=== PATIENT | male | born 1950 | race Caucasian/White ===

== ENCOUNTER → 2020-12-24 15:26 | Outpatient (BNVA) | payer OTHER, SELFPAY | PROVIDERS: PCP Family Medicine; Visit Provider Nurse Practitioner | DX: G62.9 Polyneuropathy, unspecified (principal); S06.9X0S Unspecified intracranial injury without loss of consciousness, sequela; V89.2XXS Person injured in unspecified motor-vehicle accident, traffic, sequela | CPT/HCPCS: 99204 ==

== ENCOUNTER 2021-01-15 15:17 | Outpatient (CLI) | payer OTHER, SELFPAY ==
--- NOTE | 2021-01-15 15:15 | MR_ITS ---
WS: [id number] MRI BRAIN WITHOUT CONTRAST HISTORY: I67.9 - Cerebrovascular disease, unspecified COMPARISON: None available. TECHNIQUE: Diffusion imaging, multiplanar T1, T2 and FLAIR imaging obtained. No evidence for acute infarct or hemorrhage. Nelson-white matter differentiation is normal. Moderate amount of small vessel ischemic disease in the periventricular and subcortical white matter. No prior infarcts. There is mild bilateral atrophy. No inferior displacement of cerebellar tonsils. Ventricles and extra-axial spaces are mildly prominent on the basis of atrophy. Cavum septum et verga e variant is noted. No inferior displacement of cerebellar tonsils. The sella turcica and pituitary gland are unremarkabl e. Dural venous sinuses and [place] demonstrate no abnormality on this unenhanced studies. Paranasal sinuses: Clear. Mastoid air cells: Mild bilateral mastoid air cell fluid. Calvarium and scalp: Intact. MR/MR head wo con* [id number] IMPRESSION: 1. No acute infarct. 2. Mild atrophy with moderate chronic microvascular ischemic type changes. No prior infarcts.
== END 2021-01-15 15:18 | disposition home or self-care (01) ==
LOC: RADSHAW 15:19
PROVIDERS: PCP Family Medicine; Visit Provider Nurse Practitioner
DX: I67.9 Cerebrovascular disease, unspecified (principal); G31.9 Degenerative disease of nervous system, unspecified; I67.82 Cerebral ischemia
CPT/HCPCS: 70551

== ENCOUNTER → 2023-03-02 10:40 | Outpatient (BNVA) | payer OTHER, SELFPAY | PROVIDERS: PCP Family Medicine; Visit Provider Internal Medicine Cardiovascular Disease | DX: R00.2 Palpitations (principal); I10 Essential (primary) hypertension; R06.02 Shortness of breath; R07.9 Chest pain, unspecified; I25.3 Aneurysm of heart; E11.9 Type 2 diabetes mellitus without complications; E78.5 Hyperlipidemia, unspecified; G47.33 Obstructive sleep apnea (adult) (pediatric); G45.9 Transient cerebral ischemic attack, unspecified; Z86.73 Personal history of transient ischemic attack (TIA), and cerebral infarction without residual deficits; I45.9 Conduction disorder, unspecified | CPT/HCPCS: 36415; 80048; 83880; 99205 ==

== ENCOUNTER → 2023-03-02 12:13 | Outpatient (BNVA) | payer OTHER, SELFPAY | PROVIDERS: PCP Family Medicine; Visit Provider Internal Medicine Cardiovascular Disease | DX: R00.2 Palpitations (principal); I10 Essential (primary) hypertension; R06.02 Shortness of breath; R07.9 Chest pain, unspecified | CPT/HCPCS: 93005 ==

== ENCOUNTER 2023-03-17 08:09 | Outpatient (CLI) | payer OTHER, SELFPAY ==
[2023-03-17 08:17] VITALS: BMI 35.2
--- NOTE | 2023-03-17 08:19 | NMCV_ITS ---
NM waylon perf SPECT r/s* [id number] Jaron Hawk Age: 73 Gender: M : 1950 Exam Date: 03/17/2023 09:02 Ordering Phys: Albert Stewart MD ([email or web address]) Technologist: NADINE Marquez Exam Location: [facility] Indications: CORONARY ANGIOPLASTY STATUS STRESS TEST Please [facility] IMAGE PROTOCOL Rest/Stress 1 Lexiscan Day Radiopharmaceutical Dose (mCi) Administration Site Administered by Rest: Tc-99m 10.7 IV NADIEN Pritchett Sestamibi Stress:Tc-99m 32.7 IV NADINE Pritchett Sestamibi Rest: 17-Mar-2023 60 Discovery 630 Stress: 17-Mar-2023 30 Discovery 630 0.4mg Lexiscan. Images obtained in supine and prone position. SPECT RESULTS Technical Quality: Excellent Raw Data Analysis: Normal Image Corrections: No attenuation or motion correction applied Summed Stress Score: 0 Summed Rest Score: 2 Summed Difference Score: 0 PERFUSION FINDINGS Slightly decreased recently was noted in the medical management. Basal, mid and apical inferior wall regions, with no significant reversibility. FUNCTIONAL RESULTS (calculated via Gated SPECT) Stress Image LV EF (%): 63 Stress EDV (mL):139 TID: 0.99 Stress ESV (mL):51 FUNCTIONAL FINDINGS: Segmental wall motion analysis revealing no gross wall motion abnormalities IMPRESSIONS 1. Myocardial perfusion imaging revealing small area of persistent decreased tracer uptake in the inferior wall region, suggestive of myocardial scarring versus attrition artifact. 2. Normal LV ejection fraction of 63%. 3. LV wall motion analysis revealing no gross wall motion abnormalities. 4. Normal LV volume Low probability for coronary ischemia, based on the above findings No similar previous studies are available for comparison Dr Albert Stewart MD [facility] (Electronically Signed) Final Date: 17 March 2023 19:11 S
--- NOTE | 2023-03-17 08:19 | ECG_ITS ---
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 Interpretive Statements Lung unchanged pre/post procedure;Intraprocedure shortess of breath Symptoms resoled by discharge Lexiscan/sestamibi/sestamibi stress test Indication: Shortness of breath PROCEDURE: At the baseline, the EKG revealed normal sinus rhythm with a normal ST Ts.. The baseline heart was 67 bpm with a blood pressue of 145/85 mm of Hg Lexiscan was infused over a period of 20 seconds. A total of 0.4 milligrams of Lexiscan was infused. The stress phase was continued for a total of 5 minutes. Heart rate at the end of the stress phase was 70 bpm with a blood pressure 146/67 mm of Hg. The EKG at the peak infusion revealed no significant changes. Sestamibi was injected 20 seconds after the Lexiscan infusion. Heart rate at the end of the recovery phase was 72 bpm with a blood pressure of 147/72 mm of Hg. CONCLUSION: 1. No significant EKG changes with the LexiScan infusion 2. No LexiScan induced chest pain or cardiac arrhythmia 3. Normal blood pressure and heart rate response 4. Sestamibi/sestamibi perfusion scan pending; see separate report. Electronically Signed On 03-18-2023 12:38:47 CDT by Albert Stewart M.D. [email or web address]
[2023-03-17] MEDS: regadenoson 0.4 Mg/5 ml Syringe IVP (10:27)
[2023-03-17 10:35] VITALS: BP 149/76; PULSE 71
--- NOTE | 2023-03-17 12:15 | USCV_ITS ---
Jaron Hawk Age: 73 Gender: M : 1950 Exam Date: 03/17/2023 08:47 Ordering Phys: Albert Stewart MD ([email or web address]) Technologist: CURTIS Exam Location: [facility] [place] Indication: SHORTNESS OF BREATH BP: 152 / 80 HR: 61 Rhythm: Sinus Technical Quality: Adequate MEASUREMENTS (Male / Female) Normal Values 2D ECHO LVOT Diameter 2.0 cm LV Ejection Fraction MOD 2C 62.3 % LV Ejection Fraction 2C AL 61.8 % LA Diameter 3.2 cm LA Width 3.5 cm LA Height 5.3 cm RA Width 4.2 cm RA Height 5.3 cm Aorta at Sinotubular Diameter 2.9 cm IVC Diameter 2.2 cm M-MODE Aortic Annulus Diameter 3.8 cm LA Ao Ratio MM 0.8 MV E Point Septal Separation 0.9 cm DOPPLER AV Peak Velocity 152.0 cm/s LVOT Peak Velocity 128.0 cm/s AV Area Cont Eq vti 3.1 cm squared AV Area Cont Eq pk 2.7 cm squared MV Peak Velocity 101.0 cm/s MV Area PHT 2.5 cm squared Mitral E to A Ratio 0.8 MV E' Velocity 39.0 cm/s Mitral E to MV E' Ratio 7.5 Mitral E to LV E' Lateral Ratio 7.6 Mitral E to LV E' Septal Ratio 7.5 TR Peak Velocity 241.4 cm/s TR Peak Gradient 23.3 mmHg TR Mean Velocity 193.2 cm/s TR Mean Gradient 15.7 mmHg TR Velocity Time Integral 79.7 cm TV Peak E Velocity 48.0 cm/s Right Atrial Pressure 3.0 mmHg Pulmonary Artery Systolic Pressu 26.3 mmHg PV Peak Velocity 108.0 cm/s RV Acceleration Time 0.1 s RV Ejection Time 0.4 s RV AcT/ET 0.3 FINDINGS Left Ventricle Normal left ventricular size and systolic function, EF 59 %. No regional wall motion abnormalities. Grade I/IV diastolic dysfunction (abnormal relaxation filling pattern), normal to mildly elevated filling pressures. Right Ventricle The right ventricle is normal in size and function. Right Atrium The right atrium is normal in size. Left Atrium The left atrium is normal in size. Mitral Valve No gross abnormalities noted Aortic Valve No gross abnormalities noted Tricuspid Valve No gross abnormalities noted Pulmonic Valve Pulmonic valve not well visualized. Pericardium Normal pericardium without effusion. Aorta Normal ascending aorta dimension. IVC The inferior vena cava appears normal. CONCLUSIONS Normal left ventricular size and systolic function, EF 59 %. No regional wall motion abnormalities. Grade I/IV diastolic dysfunction (abnormal relaxation filling pattern), normal to mildly elevated filling pressures. No gross valvular abnormalities There is no pericardial effusion. No significant stenotic or regurgitant lesions, based on color flow Doppler examination. No similar previous studies are available for comparison Dr Albert Stewart MD [facility] (Electronically Signed) Final Date: 19 March 2023 13:27 S
--- NOTE | 2023-03-17 13:30 | USCV_ITS ---
Jaron Hawk Age: 73 Gender: M : 1950 Exam Date: 03/17/2023 08:32 Ordering Phys: Albert Stewart MD ([email or web address] Technologist: CURTIS [place] [facility] [facility] [place]: TIA Risk Factors: Previous Vascular Surgery: Right Brachial BP: / Left Brachial BP: / Right Left Velocity (cm/s) Spectral Plaque Velocity (cm/s) Spectral Plaque Syst/Diast Broadening Syst/Diast Broadening 93.50/ 11.10 Prox CCA 122.70/ 31.10 102.50/23.20 Mid CCA 83.90 / 19.40 58.30/ 14.80 Distal CCA 69.00 / 17.70 48.70/ 12.80 Prox ICA 51.40 / 11.10 59.00/ 20.50 Mid ICA 71.50 / 23.30 66.10/ 30.80 Distal ICA 72.50 / 21.80 97.40 ECA 74.90 0.64 ICA/CCA 0.59 Antegrade Vertebral Antegrade 35.00/ 13.70 cm/s 36.90/ 10.30 cm/s Tri Subclavian Tri 158.5 153.9 0 0 FINDINGS Minimal plaques at the bifurcations and proximal internal carotid arteries. Scattered minimal plaques in the carotid common carotid arteries bilaterally Antegrade flow in the vertebral arteries bilaterally. Normal Doppler velocities in the external carotid and subclavian arteries CONCLUSIONS Minimal plaques at the bifurcations and proximal internal carotid arteries, suggesting less than 50% stenosis No significant stenosis in the external carotid or subclavian arteries based on the flow velocity measurements No similar previous studies are available for comparison Dr Albert Stewart MD [facility] (Electronically Signed) Final Date: 19 March 2023 13:17 S
== END 2023-03-17 08:10 | disposition home or self-care (01) ==
LOC: CDL 08:11
PROVIDERS: Family Provider Physician Assistant; PCP Family Medicine; Visit Provider Internal Medicine Cardiovascular Disease
DX: R06.09 Other forms of dyspnea (principal); I77.9 Disorder of arteries and arterioles, unspecified; I65.23 Occlusion and stenosis of bilateral carotid arteries
CPT/HCPCS: 36415; 78452; 93017; 93306; 93880; 96374; A9500; J2785

== ENCOUNTER → 2023-05-09 10:03 | Outpatient (BNVA) | payer OTHER, SELFPAY | PROVIDERS: Family Provider Physician Assistant; PCP Family Medicine; Visit Provider Nurse Practitioner Family | DX: I10 Essential (primary) hypertension (principal); Z87.891 Personal history of nicotine dependence | CPT/HCPCS: 99213 ==

== ENCOUNTER 2023-08-02 13:25 | Outpatient (CLI) | payer OTHER, SELFPAY ==
--- NOTE | 2023-08-02 13:45 | USCV_ITS ---
Jaron Hawk Age: 73 Gender: M : 1950 Exam Date: 08/02/2023 13:42 Ordering Phys: Izabela Cabrera Technologist: [place] [facility] [place]ication: pad numbness Risk Factors: Previous Vascular Surgery: RIGHT LEFT BP: 156.0 / BP: 148.0/ 0 0 Waveform Velocity (cm/s) Velocity (cm/s) Waveform Triphasic 120.0 Iliac Prox 123.0 Triphasic Triphasic 125.0 Iliac Mid 113.0 Triphasic Triphasic Iliac Distal Triphasic 127.0 113.0 Triphasic 120.0 ZIGZAG MACHINE OPERATOR 114.0 Triphasic Triphasic 106.0 SFA Prox 114.0 Triphasic Triphasic 88.0 SFA Mid 116.0 Triphasic Triphasic 95.0 SFA Dist 104.0 Triphasic Triphasic 91.0 POP 80.0 Triphasic Triphasic 78.0 HIGH RIGGER 61.0 Triphasic Biphasic 84.0 DPA 77.0 Triphasic 1.0 AMERICA 1.4 FINDINGS Intimal thickening and minimal plaques in the iliac, femoral and popliteal arteries bilaterally Resting AMERICA 1.0 on the right and 1.4 on the left CONCLUSIONS 1. Normal resting ABIs bilaterally 2. Near normal arterial Doppler waveforms and velocities bilaterally. No significant arterial obstruction, based on the above finding Dr Albert Stewart MD [facility] (Electronically Signed) Final Date: 04 August 2023 17:21 S
== END 2023-08-02 13:26 | disposition home or self-care (01) ==
LOC: RAD 13:25
PROVIDERS: Family Provider Physician Assistant; PCP Family Medicine; Visit Provider Nurse Practitioner Family
DX: I25.3 Aneurysm of heart (principal); G45.9 Transient cerebral ischemic attack, unspecified; I10 Essential (primary) hypertension; I73.9 Peripheral vascular disease, unspecified; R20.0 Anesthesia of skin
CPT/HCPCS: 93925

== ENCOUNTER → 2023-09-07 13:33 | Outpatient (BNVA) | payer OTHER, SELFPAY | PROVIDERS: Family Provider Physician Assistant; PCP Family Medicine; Visit Provider Podiatrist Foot & Ankle Surgery | DX: L60.3 Nail dystrophy (principal); L84 Corns and callosities; G62.9 Polyneuropathy, unspecified; E11.42 Type 2 diabetes mellitus with diabetic polyneuropathy | CPT/HCPCS: 99203 ==

== ENCOUNTER → 2023-09-22 15:15 | Outpatient (BNVA) | payer OTHER, SELFPAY | PROVIDERS: Family Provider Physician Assistant; PCP Family Medicine; Visit Provider Internal Medicine Cardiovascular Disease | DX: R06.02 Shortness of breath (principal); I10 Essential (primary) hypertension; E78.5 Hyperlipidemia, unspecified; E11.9 Type 2 diabetes mellitus without complications; Z86.73 Personal history of transient ischemic attack (TIA), and cerebral infarction without residual deficits; Z87.891 Personal history of nicotine dependence; I25.3 Aneurysm of heart | CPT/HCPCS: 99215 ==

== ENCOUNTER → 2023-10-12 12:47 | Outpatient (BNVA) | payer OTHER, SELFPAY | PROVIDERS: Family Provider Physician Assistant; PCP Family Medicine; Visit Provider Internal Medicine Cardiovascular Disease | DX: I63.9 Cerebral infarction, unspecified (principal); R06.02 Shortness of breath; I10 Essential (primary) hypertension | CPT/HCPCS: 36415; 80048; 83880; 99214 ==

== ENCOUNTER → 2023-11-08 10:11 | Outpatient (BNVA) | payer OTHER, SELFPAY | PROVIDERS: Family Provider Physician Assistant; PCP Family Medicine; Visit Provider Podiatrist Foot & Ankle Surgery | DX: L60.3 Nail dystrophy (principal); L84 Corns and callosities; G62.9 Polyneuropathy, unspecified; E11.42 Type 2 diabetes mellitus with diabetic polyneuropathy | CPT/HCPCS: 11721 ==

== ENCOUNTER → 2024-01-17 12:46 | Outpatient (BNVA) | payer OTHER, SELFPAY | PROVIDERS: Family Provider Physician Assistant; PCP Family Medicine; Visit Provider Podiatrist Foot & Ankle Surgery | DX: L60.3 Nail dystrophy (principal); L84 Corns and callosities; G62.9 Polyneuropathy, unspecified; E11.42 Type 2 diabetes mellitus with diabetic polyneuropathy | CPT/HCPCS: 11721 ==

== ENCOUNTER → 2024-02-15 10:45 | Outpatient (BNVA) | payer OTHER, SELFPAY | PROVIDERS: Family Provider Physician Assistant; PCP Family Medicine; Referring Provider Internal Medicine Cardiovascular Disease; Visit Provider Specialist | DX: G37.9 Demyelinating disease of central nervous system, unspecified (principal); G47.33 Obstructive sleep apnea (adult) (pediatric); I20.0 Unstable angina; G62.9 Polyneuropathy, unspecified; E11.40 Type 2 diabetes mellitus with diabetic neuropathy, unspecified; I10 Essential (primary) hypertension | CPT/HCPCS: 99204; 99205 ==

== ENCOUNTER 2024-03-08 09:22 | Outpatient (CLI) | payer OTHER, SELFPAY ==
--- NOTE | 2024-03-08 09:30 | USCV_ITS ---
Jaron Hawk Age: 74 Gender: M : 1950 Exam Date: 03/08/2024 09:36 Ordering Phys: Gennaro Lara M.D. Technologist: SUBHASH Exam Location: [facility] Indication: cca disease Risk Factors: Previous Vascular Surgery: Right Brachial BP: / Left Brachial BP: / Right Left Velocity (cm/s) Spectral Plaque Velocity (cm/s) Spectral Plaque Syst/Diast Broadening Syst/Diast Broadening 126.70/20.60 Prox CCA 90.60 / 13.80 113.10/18.30 Mid CCA 67.10 / 12.50 99.10/ 18.00 Distal CCA 67.10 / 10.70 41.80/ 5.90 Prox ICA 45.80 / 9.50 36.40/ 2.90 Mid ICA 49.30 / 5.10 48.20/ 14.80 Distal ICA 41.70 / 9.30 88.40 ECA 79.00 0.50 ICA/CCA 0.70 Antegrade Vertebral Antegrade 73.10/ 20.00 cm/s 35.90/ 6.70 cm/s Tri Subclavian Tri 88.90 107.7 0 CONCLUSIONS Right ICA stenosis <50%. Mild atheromatous plaque right carotid bulb/ICA. Left ICA stenosis <50%. Mild atheromatous plaque left carotid bulb/ICA. Intimal thickening in the common carotid arteries and internal carotid arteries bilaterally. Normal antegrade Doppler flow noted in the right vertebral artery. Normal antegrade Doppler flow noted in the left vertebral artery. Aravind Calderón MD (Electronically Signed) Final Date: 08 March 2024 15:38 S
== END 2024-03-08 09:23 | disposition home or self-care (01) ==
LOC: RAD 09:23
PROVIDERS: Family Provider Physician Assistant; PCP Family Medicine; Visit Provider Emergency Medicine
DX: I65.23 Occlusion and stenosis of bilateral carotid arteries (principal)
CPT/HCPCS: 93880

== ENCOUNTER → 2024-03-20 16:00 | Outpatient (BNVA) | payer OTHER, SELFPAY | PROVIDERS: Family Provider Physician Assistant; PCP Family Medicine; Visit Provider Internal Medicine | DX: I10 Essential (primary) hypertension (principal); I20.0 Unstable angina; R06.09 Other forms of dyspnea; R58 Hemorrhage, not elsewhere classified | CPT/HCPCS: 36415; 80048; 85025; 85610 ==

== ENCOUNTER 2024-03-28 08:01 | Outpatient (CLI) | payer OTHER, SELFPAY ==
--- NOTE | 2024-03-28 08:07 | CT_ITS ---
WS: [id number] CT HEAD NONCONTRAST HISTORY: TBI AND RECURRENT TIA SYMPTOMS TECHNIQUE: Contiguous axial imaging performed through the brain. Bone and soft tissue windows. Sagitt al and coronal reformats reviewed. All CT scans at [facility] use at least one of these dose optimization techniques: automated exposure control; mA and/or kV adjustment per patient size (includ es targeted exams where dose is matched to clinical indication); or iterative reconstruction. DLP: 2194.88 mGy.cm COMPARISON: MRI 01/15/2021 No acute intracranial hemorrhage, midline shift or mass effect. Mild atrophy with moderate small vessel ischemic disease. No prior infarcts. Ventricles: Mildly dilated ventricles with cavum septum pellucida et vergae variant. No inferior displacement of the cerebellar tonsils. Paranasal sinuses: As visualized are clear. Mastoid air cells: Well pneumatized. Calvarium and scalp: Skull is intact with no soft tissue edema or swelling. Ectatic dilated vertebral and basilar artery. Heavy calcification in the intracranial carotid arterie s. CT/CT head wo con* [id number] IMPRESSION: 1. No acute intracranial hemorrhage or edema. 2. Mild atrophy with moderate small vessel disease. No acute infarct. 3. Extensive atherosclerosis intracranial carotid arteries.
== END 2024-03-28 08:02 | disposition home or self-care (01) ==
LOC: RAD 08:02
PROVIDERS: Family Provider Physician Assistant; PCP Emergency Medicine; Visit Provider Emergency Medicine
DX: I65.23 Occlusion and stenosis of bilateral carotid arteries (principal); I67.82 Cerebral ischemia; I77.74 Dissection of vertebral artery
CPT/HCPCS: 70450

== ENCOUNTER 2024-04-05 08:35 | Outpatient (CLI) | payer OTHER, SELFPAY ==
[2024-04-05] VITALS (9 sets, daily range): BP systolic 133–157; BP diastolic 67–92; PULSE 63–76; RESP 16–29; TEMP 36.7; O2SAT 94–97; BMI 34.7
--- NOTE | 2024-04-05 09:00 | XACV_ITS ---
Exam Room: 2 Ht: 183 cm Wt: 116 kg BSA: 2.47 m2 Gender: Male : 1950 Any Known Allergies: No known allergies Exam Priority: Routine Procedure(s): Procedure Description: Diagnostic procedure Procedure Description: Left Heart Catheterization Procedure Description: Left ventriculography Procedure Description: Coronary Angiography Procedure Description: Pressure Wire Diagnostic Cath Status: Elective Diagnostic Findings * Left Main has no disease. * Circumflex has no disease. * Mid Left Anterior Descending: obstructive 60% stenosis, TORITO: 3 flow. * Proximal Right Coronary Artery: obstructive 70% stenosis, TORITO: 3 flow, iFR performed: ratio is 0.95. * Coronary angiography shows right dominance. Conclusions 1. There is obstructive coronary artery disease with two vessel disease. 2. All coughlin are normal. 3. Normal left ventricular systolic function. Ejection fraction of 60%. 4. 74-year-old male past medical history significant for TIA diabetes hypertension negative stress test but persistent unexplained shortness of breath underwent coronary angiogram today. He was noted to have borderline moderate proximal RCA eccentric 60 to 70% stenosis, IFR was performed which turned out to be within nonsignificant range of 0.95. It was also noted patient has mid 50 to 60% stenosis more evident in INDIAN caudal and apical anterior views, while in other views it did not look significant and because of the fact he has negative stress test in the area we thought that it would be nonsignificant and will treat medically. However if patient continues to have symptoms despite of optimization of medicine may consider intervening on those 2 lesions after repeating IFR. Recommendations * Optimize medical management and risk factor modification. Diagnostic RX Recommendation: medical therapy and/or counseling Ventriculography Ejection Fraction: 60.0 % Pressures Phase:Rest AO : 126 / 70 ( 92 ) @ 12:43:00 PM 143 / 72 ( 101 ) @ 12:54:00 PM LV : 138 / 0 / 21 @ 12:49:00 PM 141 / 4 / 25 @ 12:50:00 PM Clinical Evaluation EBL: 5mL-10mL Procedural Details Procedure Consent Obtained. Admit Source: Out Patient. Pre-Procedure Time Out. Identified patient by full name and date of as verbalized by the patient/guarantor. Does the consent match the physician's order: Yes. Accurate & Complete Informed Consent: Yes. Inpatient/Outpatient History & Physical on Chart: Yes. If H&P is completed, is and addenduem needed: No; If yes, is the addendum complete: N/A. Visualize and Verify Site with Patient/Guarantor: N/A. Relevant Radiology Images available: Yes. The risks, benefits, and alternatives of sedation and/or procedure were discussed by physician. The patient agrees to continue. Procedure started. [facility] Clinical Fraility Score: 3: Managing Well. Consumer Analyst Indications: Worsening Angina. Chest Pain Symptom Assessment: Typical Angina Symptoms. Correct patient, site and procedure confirmed by cath team. Current diagnosis: Unstable angina. PERRLA. Strong, equal hand pipe stress engineer bilaterally. Lungs clear x 5 lobes. IV Site on Arrival: 20 gauge in the left forearm. IV Fluids: 0.9% NaCl at KVO. 0 mL infused prior to cath lab radiology technician. Pre Procedural Pulses: bilateral dorsalis pedis was 3+. Pre Procedural Pulses: bilateral posterior tibial was 3+. Pre Procedural Pulses: right radial was 3+. Oxygen started at 2liters/min via nasal canula. right radial was prepped with chloroprep then draped in the usual sterile fashion. right groin was prepped with chloroprep then draped in the usual sterile fashion. Physician notified. Baseline sample Acquired. HR: 68 BPM. Physician arrived. Physician scrubbed in. Immediate Pre-Procedure Time Out. Correct Patient: Yes; Correct Procedure: Yes; Correct Site: Yes; Correct Patient Position: Yes; Correct Supplies: Yes; Dried Flammable Prep: Yes; Blood Products Available: No;. Lidocaine 1% infiltrated to the right radial. Arterial access obtained. A 5 dutch Korey catheter in over wire. Multiple views taken of left coronary artery. Catheter redirected to the RCA. Multiple views taken of right coronary artery. Catheter removed over the exchange wire. A 5 dutch Angled Pig catheter in over wire. EDP Sample taken: LV 138/0,21; HR: 70 BPM; SpO2: 95%. LV gram performed in CID @ 10 mL/second for a total of 20 mL. EDP Sample taken: LV 141/4,25; HR: 62 BPM; SpO2: 94%. Pullback taken: LV Off; AO Off; Mean: , Peak to Peak: , SEP: ; HR: 66 BPM; SpO2: 94%. Catheter removed over the exchange wire. 6 dutch JR 4 guide catheter was inserted over the wire. iFR pressure guidewire in through guide catheter. Add inventory: co-ship's pilot, endoflator. iFR performed of mid RCA , result 0.95mmHg. IFR wire out. Results checked. Guide catheter and exchange wire out. Post Procedure: Pulses reassessed and unchanged. PERRLA. Strong, equal hand pipe stress engineer bilaterally. No VTE prophylaxis required. Medication's Wasted: Lidocaine 1% = 18 mL. Medication's Wasted: Nitro = 49.8 mg. Medication's Wasted: Other = Fentanyl 50mcg. Total IV fluids: 40 mL. Post-op diagnosis: Non-obstructive CAD. Complications: None. Estimated blood loss: 5mL-10mL. Responsiveness - Normal response to verbal stimuli; alert and oriented, PERRLA. Airway - Unaffected, no intervention required; spontaneous ventilation. Circulation: W/N/L, pulses unchanged. Nausea/Vomiting: No. Procedure completed. A TR Band was successful obtaining hemostatsis at the Right Radial artery insertion site. Patient transferred by wheelchair to CPRU. Vital chart was stopped. Access Site Site: Right Radial artery Sheath Size: 6 Fr Hemostasis Method: TR Band Hemostasis Success: Successful Procedure Medications Start: 11:32 AM Stop: 11:32 AM Medication: Solu-Medrol (methylprednisolone) Route: I.V. Start: 11:33 AM Stop: 11:33 AM Medication: Fentanyl Amount: 50 mcg Route: I.V. Start: 11:37 AM Stop: 11:37 AM Medication: Versed Amount: 1 mg Route: I.V. Start: 11:41 AM Stop: 11:41 AM Medication: Nitrogylcerin Amount: 200 mcg Route: I.A. Start: 11:42 AM Stop: 11:42 AM Medication: Heparin Amount: 5000 units Route: I.V. Start: 11:48 AM Stop: 11:48 AM Medication: Heparin Amount: 3000 units Route: I.V. Start: 11:59 AM Stop: 11:59 AM Medication: Versed Amount: 1 mg Route: I.V. I, the attending physician, have reviewed and verified all procedure medications. Yes, all medications given per verbal order History/Risk Factors Hypertension: Yes Dyslipidemia: No Peripheral Arterial Disease (PAD): No Myocardial Infarction ([place]): No Obesity: No Renal Disease: No Prior Interventions PCI: No CABG: No Valve Surgery: No Report Signatures Finalized by Wendi Knight MD on 04/29/2024 11:45 PM
[2024-04-05] MEDS: diphenhydrAMINE 50 mg Capsule PO (09:15)
[2024-04-05] MEDS: aspirin 325 mg Tablet PO (09:27)
[2024-04-05 09:30] LABS: Basophils % 0.4 %; Eosinophils # 0.3 10^3/uL (0.0-0.8); Eosinophils % 3.4 %; Hematocrit 42.8 % (37-53); Lymphocytes # 1.4 10^3/uL (0.8-4.8); Lymphocytes % 18.2 %; Mean Corpuscular HGB Conc 33.2 g/dL (30-55); Mean Corpuscular Hemoglobin 30.2 pg (27-33); Mean Corpuscular Volume 91.1 fl (82-101); Mean Platelet Volume 8.3 fL (7.4-10.4); Monocytes # 0.6 10^3/uL (0.2-0.9); Monocytes % 7.4 %; Neutrophils % 70.2 %; Nucleated Red Blood Cells % 0 %; Platelet Count 273 10^3/cmm (157-399); Red Cell Distribution Width 12.7 % (12.1-15.1); White Blood Count 7.69 10^3/uL (3.29-11.43)
[2024-04-05 09:46] LABS: Blood Urea Nitrogen 22 mg/dL (8-23); Calcium 8.3 mg/dL (8.5-10.5); Carbon Dioxide 23 mmol/L (22-29); Chloride 106 mmol/L (98-107); Creatinine Clr Calc Pharmacy 104.9569; Glucose 122 mg/dL (65-115); Osmolality Calculated 295 mOsm/kg (285-295); Sodium 140 mmol/L (136-145)
--- NOTE | 2024-04-05 11:21 | W.PM.OPSUD ---
Surgery/Procedure H&P Update DATE OF PROCEDURE: April 05, 2024 DATE H&P PERFORMED: 03/20/24 H&P UPDATE INFORMATION: I have reviewed H&P completed within last 30 days, I have examined patient prior to procedure and No changes to prior documentation PREOP DIAGNOSIS: Angina equivalent shortness of breath unexplained PRIMARY INDICATION FOR PROCEDURE: Angina with worsening of symptoms PLANNED PROCEDURE: Operation Date: 04/05/24 10:00 Proposed Procedures p Cardiac Catheterization - C w/wo LV & Coros(Left) - Wendi Knight MD PATIENT REASSESSED PRIOR TO SEDATION, WITH NO CHANGE NOTED: Yes PHYSICAL EXAM: alert, oriented x 3, clear to auscultation bilaterally and regular rate & rhythm AIRWAY EVAL/ANESTHESIA PLAN: ASA II, Risks, benefits & alternatives of sedation and/or procedure discussed and Patient agrees to continue as planned
--- NOTE | 2024-04-05 13:56 | PC.NURSE ---
Patient came to CSU from medical laboratory manager at 1315, with a right radial TR-band.
== END 2024-04-05 18:11 | disposition home or self-care (01) ==
LOC: CCL 12:14 → CSU 13:49
PROVIDERS: Internal Medicine Cardiovascular Disease; Family Provider Physician Assistant; PCP Emergency Medicine; Visit Provider Internal Medicine
DX: I25.10 Atherosclerotic heart disease of native coronary artery without angina pectoris (principal); I10 Essential (primary) hypertension; G47.30 Sleep apnea, unspecified; E11.42 Type 2 diabetes mellitus with diabetic polyneuropathy; Z86.73 Personal history of transient ischemic attack (TIA), and cerebral infarction without residual deficits
CPT/HCPCS: 36415; 80048; 85025; 93458; 93571; 96365; 96374; 96375; 99152; C1769; C1887; C1894; J1644; J2250; J2919; J3010; J3490; J7030; Q0163; Q9967

== ENCOUNTER → 2024-04-24 12:45 | Outpatient (BNVA) | payer OTHER, SELFPAY | PROVIDERS: Family Provider Physician Assistant; PCP Emergency Medicine; Visit Provider Nurse Practitioner Family | DX: I25.10 Atherosclerotic heart disease of native coronary artery without angina pectoris (principal); Z86.73 Personal history of transient ischemic attack (TIA), and cerebral infarction without residual deficits; R06.09 Other forms of dyspnea; Z87.891 Personal history of nicotine dependence | CPT/HCPCS: 99214 ==

== ENCOUNTER → 2024-05-16 07:11 | Outpatient (BNVA) | payer OTHER, SELFPAY | PROVIDERS: Family Provider Physician Assistant; PCP Emergency Medicine; Visit Provider Podiatrist Foot & Ankle Surgery | DX: L60.3 Nail dystrophy (principal); L84 Corns and callosities; G62.9 Polyneuropathy, unspecified; E11.42 Type 2 diabetes mellitus with diabetic polyneuropathy | CPT/HCPCS: 11721 ==

== ENCOUNTER 2024-07-31 08:34 | Outpatient (CLI) | payer OTHER, SELFPAY ==
--- NOTE | 2024-07-31 | MR_ITS ---
WS: [id number] MRI LUMBAR SPINE NONCONTRAST TECHNIQUE: Sagittal T1, T2 and STIR imaging. Axial T1 and T2 imaging. CLINICAL INFORMATION: LOW BACK PAIN COMPARISON: None. FINDINGS: Mild lumbar curve. No acute compression. Multilevel disc bulging throughout the lumbar spine. Slight anterolisthesis L4 on L5. Degenerative endplate type changes at L4-5. L1-L2: Mild disc bulging. Mild central canal stenosis. Mild bilateral foraminal narrowing. Narrowing of the subarticular recess bilaterally. Moderate facet arthropathy. L2-L3: Mild disc bulging with moderate to severe central canal stenosis. Advanced facet arthropathy. Bilateral foraminal protrusions with moderate LEFT and mild RIGHT foraminal narrowing. L3-L4: Mild disc bulge with mild central canal stenosis. Moderate facet arthropathy. Narrowing of the subarticular recess bilaterally. Moderate RIGHT and mild LEFT foraminal narrowing. L4-L5: Slight anterolisthesis. Disc bulging with severe central canal stenosis. Advanced facet arthropathy and ligamentum flavum hypertrophy. Severe LEFT and moderate RIGHT foraminal narrowing. L5-S1: Mild disc bulging with mild central canal stenosis. Advanced facet arthropathy. Mild bilateral foraminal narrowing. Mild central canal stenosis in the cervical spine on the ship's pilot imaging at C4-C5 due to disc osteophyte protrusion. MR/MR lumbar spine wo con* [id number] IMPRESSION: Some images degraded by motion. 1. Moderate to severe central canal stenosis L2-3 and severe central canal shivani nosis L4-5 described above. 2. Mild central canal stenosis L3-4. 3. Multilevel moderate to severe bony foraminal narrowing described above wors e at RIGHT L3-4 and LEFT L4-5.
== END 2024-07-31 08:35 | disposition home or self-care (01) ==
LOC: RAD 08:34
PROVIDERS: Family Provider Physician Assistant; PCP Emergency Medicine; Visit Provider Emergency Medicine
DX: M48.061 Spinal stenosis, lumbar region without neurogenic claudication (principal); M43.8X6 Other specified deforming dorsopathies, lumbar region; M51.369 Other intervertebral disc degeneration, lumbar region without mention of lumbar back pain or lower extremity pain; R93.7 Abnormal findings on diagnostic imaging of other parts of musculoskeletal system; M47.896 Other spondylosis, lumbar region; M51.379 Other intervertebral disc degeneration, lumbosacral region without mention of lumbar back pain or lower extremity pain; M48.07 Spinal stenosis, lumbosacral region; M47.897 Other spondylosis, lumbosacral region
CPT/HCPCS: 72148

== ENCOUNTER → 2024-10-02 09:00 | Outpatient (BNVA) | payer OTHER, SELFPAY | PROVIDERS: Family Provider Physician Assistant; PCP Emergency Medicine; Visit Provider Podiatrist Foot & Ankle Surgery | DX: E11.42 Type 2 diabetes mellitus with diabetic polyneuropathy (principal); L60.3 Nail dystrophy; L84 Corns and callosities; G62.9 Polyneuropathy, unspecified; S92.402A Displaced unspecified fracture of left great toe, initial encounter for closed fracture; W22.8XXA Striking against or struck by other objects, initial encounter | CPT/HCPCS: 11721; 99213 ==

== ENCOUNTER 2024-12-04 09:19 | Outpatient (CLI) | payer OTHER, SELFPAY ==
--- NOTE | 2024-12-04 09:25 | USR_ITS ---
PROCEDURE INFORMATION: Exam: US Duplex Left Lower Extremity Arteries Or Arterial Bypass Grafts Exam date and time: 12/04/2024 9:29 AM Age: 74 years old Clinical indication: Pain; Leg, lower; Left; Additional info: Persistant pain edema to L foot w/callouses TECHNIQUE: Imaging protocol: Left Real-time duplex scan of the arteries or arterial bypass grafts of the left lower extremity with 2-D davila scale, color Doppler flow and spectral waveform analysis. Images documented and saved. COMPARISON: No relevant prior studies available. FINDINGS: Left common femoral artery: No occlusion or significant stenosis. Normal waveform. Left superficial femoral artery: No occlusion or significant stenosis. Normal waveform. Left popliteal artery: No occlusion or significant stenosis. Normal waveform. Left calf/foot arteries: No occlusion or significant stenosis in the visualized arteries. Normal waveforms. Dorsalis pedis artery is patent. US/CV arterial duplex [facility] [id number] IMPRESSION: No stenosis or occlusion.
== END 2024-12-04 09:20 | disposition home or self-care (01) ==
LOC: RAD 09:20
PROVIDERS: Family Provider Physician Assistant; PCP Emergency Medicine; Visit Provider Physician Assistant
DX: I73.9 Peripheral vascular disease, unspecified (principal)
CPT/HCPCS: 93926

== ENCOUNTER → 2024-12-11 07:16 | Outpatient (BNVA) | payer OTHER, SELFPAY | PROVIDERS: Family Provider Physician Assistant; PCP Emergency Medicine; Visit Provider Podiatrist Foot & Ankle Surgery | DX: E11.42 Type 2 diabetes mellitus with diabetic polyneuropathy (principal); L60.3 Nail dystrophy; L84 Corns and callosities; G62.9 Polyneuropathy, unspecified; R60.9 Edema, unspecified; I87.2 Venous insufficiency (chronic) (peripheral) | CPT/HCPCS: 99213 ==

== ENCOUNTER 2024-12-21 09:13 | Outpatient (CLI) | payer OTHER, SELFPAY ==
--- NOTE | 2024-12-21 09:30 | USR_ITS ---
PROCEDURE INFORMATION: Exam: US Duplex Left Lower Extremity Veins, Limited Exam date and time: 12/21/2024 9:41 AM Age: 74 years old Clinical indication: Swelling (edema) of limb; Lower extremity, left; Additional info: Left leg swelling TECHNIQUE: Imaging protocol: Real-time duplex ultrasound of the left extremity with 2-D davila scale, color Doppler flow and spectral waveform analysis including responses to compression and other maneuvers (when performed) with image documentation. Limited exam focused on the left lower extremity veins. COMPARISON: US CV arterial duplex [facility] [id number] 12/04/2024 9:29 AM FINDINGS: Left deep veins: Unremarkable. The common femoral, femoral, proximal profunda femoral and popliteal veins are patent without thrombus. Normal Doppler waveforms. Normal compressibility and/or augmentation response. Superficial veins: Greater saphenous vein at the saphenofemoral junction is patent without thrombus. 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 The mid left lesser saphenous vein is incompetent with about 1.5 seconds of reflux noted. Soft tissues: Unremarkable. US/CV khoi dup insuff [facility] [id number] IMPRESSION: 1. No evidence of left lower extremity DVT. 2. 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
== END 2024-12-21 09:14 | disposition home or self-care (01) ==
LOC: RAD 09:15
PROVIDERS: PCP Physician Assistant; Visit Provider Podiatrist Foot & Ankle Surgery
DX: I83.892 Varicose veins of left lower extremity with other complications (principal); M79.89 Other specified soft tissue disorders
CPT/HCPCS: 93971

== ENCOUNTER → 2024-12-24 14:08 | Outpatient (BNVA) | payer OTHER, SELFPAY | PROVIDERS: PCP Physician Assistant; Visit Provider Internal Medicine | DX: I10 Essential (primary) hypertension (principal); I25.3 Aneurysm of heart; E78.5 Hyperlipidemia, unspecified; R06.09 Other forms of dyspnea; E11.9 Type 2 diabetes mellitus without complications; Z86.73 Personal history of transient ischemic attack (TIA), and cerebral infarction without residual deficits; Z79.82 Long term (current) use of aspirin | CPT/HCPCS: 99214 ==

== ENCOUNTER → 2025-01-17 10:38 | Outpatient (BNVA) | payer OTHER, SELFPAY | PROVIDERS: PCP Physician Assistant; Visit Provider Podiatrist Foot & Ankle Surgery | DX: Q82.8 Other specified congenital malformations of skin (principal); L84 Corns and callosities; L60.3 Nail dystrophy; G62.9 Polyneuropathy, unspecified; R60.9 Edema, unspecified; I87.2 Venous insufficiency (chronic) (peripheral); E11.42 Type 2 diabetes mellitus with diabetic polyneuropathy | CPT/HCPCS: 17110; 99213 ==

== ENCOUNTER → 2025-01-31 10:18 | Outpatient (BNVA) | payer OTHER, SELFPAY | PROVIDERS: PCP Physician Assistant; Visit Provider Podiatrist Foot & Ankle Surgery | DX: Q82.8 Other specified congenital malformations of skin (principal); E11.8 Type 2 diabetes mellitus with unspecified complications; L60.3 Nail dystrophy; L84 Corns and callosities; E11.9 Type 2 diabetes mellitus without complications; G62.9 Polyneuropathy, unspecified; R60.9 Edema, unspecified; I87.2 Venous insufficiency (chronic) (peripheral); E11.69 Type 2 diabetes mellitus with other specified complication | CPT/HCPCS: 17110 ==

== ENCOUNTER → 2025-03-26 09:58 | Outpatient (BNVA) | payer OTHER, SELFPAY | PROVIDERS: PCP Physician Assistant; Visit Provider Podiatrist Foot & Ankle Surgery | DX: Q82.8 Other specified congenital malformations of skin (principal); E11.8 Type 2 diabetes mellitus with unspecified complications; L60.3 Nail dystrophy; L84 Corns and callosities; E11.9 Type 2 diabetes mellitus without complications; G62.9 Polyneuropathy, unspecified; R60.9 Edema, unspecified; I87.2 Venous insufficiency (chronic) (peripheral); E11.42 Type 2 diabetes mellitus with diabetic polyneuropathy | CPT/HCPCS: 11055; 11056; 11721; 99213 ==

== ENCOUNTER → 2025-04-23 09:02 | Outpatient (BNVA) | payer OTHER, SELFPAY | PROVIDERS: PCP Physician Assistant; Visit Provider Podiatrist Foot & Ankle Surgery | DX: E11.42 Type 2 diabetes mellitus with diabetic polyneuropathy (principal); L60.3 Nail dystrophy; L84 Corns and callosities; R60.9 Edema, unspecified; I87.2 Venous insufficiency (chronic) (peripheral); Q82.8 Other specified congenital malformations of skin; E11.8 Type 2 diabetes mellitus with unspecified complications; G62.9 Polyneuropathy, unspecified | CPT/HCPCS: 11056; 11721; 99214 ==